=== PATIENT | male | born 1995 | race Caucasian/White ===

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

== ENCOUNTER 2017-06-03 20:03 | Emergency (ER) | payer OTHER ==
--- NOTE | 2017-06-03 20:15 | ED ---
ENT HPI - General Chief complaint: ENT Stated complaint: Dental Pain Time Seen by Provider: 06/03/17 20:15 Source: patient Mode of arrival: ambulatory Limitations: no limitations - History of Present Illness Initial comments: Patient presents with pain and swelling right lower down in his mouth. States significantly worsening over the past 4 hours. Other than that he had mild dental pain in the area for the past few days. Patient denies trouble swallowing, difficulty breathing, stridor, neck pain, fevers, chills, nausea, vomiting, abdominal pain, rhinorrhea, congestion, ear pain, headaches, eye pain , vision changes. Patient states pain is at the base of a tooth that has been chippped for a long time. MD complaint: tooth pain - Related Data Home Medications Medication Instructions Recorded Confirmed Ibuprofen/Diphenhydramine HCl 2 cap PO HS PRN 06/03/17 06/03/17 [Advil Pm Liqui-Gels] Previous Rx's Medication Instructions Recorded Clindamycin [Cleocin] 450 mg PO Q6H #84 capsule 06/03/17 Ibuprofen [Motrin] 600 mg PO Q6HR PRN #20 tab 06/03/17 Allergies Allergy/AdvReac Type Severity Reaction Status Date / Time No Known Allergies Allergy Verified 06/03/17 20:29 Review of Systems ROS Statement: Those systems with pertinent positive or pertinent negative responses have been documented in the HPI. ROS Other: All systems not noted in ROS Statement are negative. Constitutional: Denies: fever, chills, weakness Eyes: Denies: eye pain, eye discharge, vision change ENT: Reports: dental pain. Denies: ear pain, throat pain, congestion Respiratory: Denies: cough Cardiovascular: Denies: chest pain Endocrine: Denies: fatigue Gastrointestinal: Denies: abdominal pain, nausea, vomiting Skin: Reports: other (Right cheek swelling.). Denies: rash Neurological: Denies: headache, confusion Past Medical History Additional Past Medical History / Comment(s): ulcer, kidney stones History of Any Multi-Drug Resistant Organisms: None Reported Past Surgical History: No Surgical Hx Reported Past Psychological History: No Psychological Hx Reported Smoking Status: Current some day smoker Past Alcohol Use History: Occasional Past Drug Use History: None Reported General Exam - General Exam Comments Initial Comments: Sitting up in bed. No acute distress. Conversing normally. Calm, pleasant. Nontoxic appearing Limitations: no limitations General appearance: alert, in no apparent distress Head exam: Present: atraumatic, normocephalic Eye exam: Present: normal appearance, PERRL, EOMI. Absent: scleral icterus, conjunctival injection, periorbital swelling, periorbital tenderness ENT exam: Present: mucous membranes moist, TM's normal bilaterally, other ( Tooth 30 missing, tooth 28 missing 1/2 tooth, mild to moderate swelling of the gum right lower mandible, mild swelling right cheek. No submandibular swelling , floor of the mouth does not appear raised.) Neck exam: Present: normal inspection, full ROM, other (No swelling of the neck appreciated. No submandibular tenderness or swelling appreciated. No stridor.) . Absent: tenderness, meningismus, lymphadenopathy Respiratory exam: Present: normal lung sounds bilaterally. Absent: respiratory distress, wheezes, rales, rhonchi, stridor Cardiovascular Exam: Present: regular rate, tachycardia GI/Abdominal exam: Present: soft. Absent: distended, tenderness, guarding, rebound, rigid Extremities exam: Present: normal inspection Neurological exam: Present: alert, oriented X3 Psychiatric exam: Present: normal affect, normal mood Skin exam: Present: warm, dry, intact, normal color Course Vital Signs 06/03/17 06/03/17 20:05 20:31 Temperature 98.2 F 97.7 F Pulse Rate 121 H 87 Respiratory 20 16 Rate Blood Pressure 167/90 150/78 O2 Sat by Pulse 98 96 Oximetry Medical Decision Making - Medical Decision Making Patient with swelling of the gum, numbed with viscous lidocaine, attempted drainage with 18-gauge needle, however no pus return. Patient tolerated procedure well. Patient mother agree to follow up with dentist tomorrow. Agrees to call first thing in the morning. We'll give prescription for clindamycin. 1st dose clindamycin given in the ER. Patient follow-up with dentist tomorrow. Return ER for worsening symptoms. Patient mother understand and agree. We'll discharge this time. Referral to free dental care given. Disposition Clinical Impression: Dental abscess Disposition: HOME SELF-CARE Condition: Good Instructions: Dental Abscess (ED) Additional Instructions: Follow-up with your Dentist first thing in the morning for reevaluation. Prescriptions: Clindamycin [Cleocin] 450 mg PO Q6H #84 capsule Ibuprofen [Motrin] 600 mg PO Q6HR PRN #20 tab PRN Reason: Pain Referrals: Radha Morris MD [Primary Care Provider] - 1-2 days
[2017-06-03] MEDS ORDERED: CLINDAMYCIN 150 MG CAP PO STA (20:28)
[2017-06-03] MEDS ORDERED: LIDOCAINE VISCOUS 2% 15 ML CUP MUCOUS MEM ONE (20:35)
[2017-06-03 21:42] VITALS: BP 151/80; PULSE 75; RESP 18; TEMP 97.4
== END 2017-06-03 21:40 | disposition home or self-care (01) ==
LOC: EC 20:03
DX: K04.7 Periapical abscess without sinus (principal); R00.0 Tachycardia, unspecified; K08.409 Partial loss of teeth, unspecified cause, unspecified class; F17.200 Nicotine dependence, unspecified, uncomplicated
CPT/HCPCS: 10160; 99282

== ENCOUNTER 2017-12-26 11:07 | Emergency (ER) | payer OTHER ==
[2017-12-26] MEDS ORDERED: ONDANSETRON 4 MG/2 ML VIAL IVP STA (11:43)
[2017-12-26] MEDS ORDERED: SODIUM CHLORIDE 0.9% 1,000 ML IV STA (11:43)
[2017-12-26] MEDS ORDERED: KETOROLAC 30 MG/ML 1 ML VIAL IVP STA (11:43)
[2017-12-26] MEDS ORDERED: HYDROmorphone 1 MG/ML 1 ML SYRINGE IVP STA ×2 (11:43→13:27)
--- NOTE | 2017-12-26 11:47 | ED ---
General Adult HPI - General Chief complaint: Back Pain/Injury Stated complaint: poss kidney stone Time Seen by Provider: 12/26/17 11:10 Source: patient, RN notes reviewed Mode of arrival: ambulatory Limitations: no limitations - History of Present Illness Initial comments: This is a 22-year-old male who presents emergency department with right-sided flank pain radiating down into his lower abdomen. Patient states that multiple kidney stones in the past and this feels like another kidney stone. Patient denies any fever chills. Patient denies any nausea or vomiting. Patient denies any diarrhea. Patient denies any chest pain difficulty breathing shortness breath. Patient denies any dysuria hematuria or urinary frequency. Patient states palpating is abnormal back does not seem to hurt and movement does not seem to increase his pain. - Related Data Home Medications Medication Instructions Recorded Confirmed Ibuprofen/Diphenhydramine HCl 2 cap PO HS PRN 06/03/17 06/03/17 [Advil Pm Liqui-Gels] Previous Rx's Medication Instructions Recorded Clindamycin [Cleocin] 450 mg PO Q6H #84 capsule 06/03/17 Ibuprofen [Motrin] 600 mg PO Q6HR PRN #20 tab 06/03/17 Hydrocodone/Acetaminophen [[place] 1 each PO Q4HR PRN #14 tab 12/26/17 5-325] Ketorolac [Toradol] 10 mg PO Q6HR #15 tab 12/26/17 Allergies Allergy/AdvReac Type Severity Reaction Status Date / Time No Known Allergies Allergy Verified 12/26/17 11:16 Review of Systems ROS Statement: Those systems with pertinent positive or pertinent negative responses have been documented in the HPI. ROS Other: All systems not noted in ROS Statement are negative. Past Medical History Additional Past Medical History / Comment(s): ulcer, kidney stones History of Any Multi-Drug Resistant Organisms: None Reported Past Surgical History: No Surgical Hx Reported Past Psychological History: No Psychological Hx Reported Smoking Status: Current some day smoker Past Alcohol Use History: Occasional Past Drug Use History: None Reported General Exam - General Exam Comments Initial Comments: GENERAL: Patient is well-developed and well-nourished. Patient is nontoxic and well- hydrated and is in moderate distress. ENT: Neck is soft and supple. No significant lymphadenopathy is noted. Oropharynx is clear. Moist mucous membranes. Neck has full range of motion without eliciting any pain. EYES: The sclera were anicteric and conjunctiva were pink and moist. Extraocular movements were intact and pupils were equal round and reactive to light. Eyelids were unremarkable. PULMONARY: Unlabored respirations. Good breath sounds bilaterally. No audible rales rhonchi or wheezing was noted. CARDIOVASCULAR: There is a regular rate and rhythm without any murmurs gallops or rubs. ABDOMEN: Soft and nontender with normal bowel sounds. No palpable organomegaly was noted. There is no palpable pulsatile mass. SKIN: Skin is clear with no lesions or rashes and otherwise unremarkable. NEUROLOGIC: Patient is alert and oriented x3. Cranial nerves II through XII are grossly intact. Motor and sensory are also intact. Normal speech, volume and content. Symmetrical smile. MUSCULOSKELETAL: Normal extremities with adequate strength and full range of motion. LYMPHATICS: No significant lymphadenopathy is noted PSYCHIATRIC: Normal psychiatric evaluation. Normal interpersonal interactions appears functionally intact in deals appropriately with others. No signs of depression. No signs of anxiety. Limitations: no limitations Course Vital Signs 12/26/17 12/26/17 11:14 13:38 Temperature 97.8 F Pulse Rate 57 L 87 Respiratory 20 18 Rate Blood Pressure 165/82 137/64 O2 Sat by Pulse 98 99 Oximetry Medical Decision Making - Medical Decision Making KUB shows multiple stones in the kidneys bilaterally. Patient has quite a bit hematuria - Lab Data Result diagrams: 12/26/17 11:48 12/26/17 11:48 Lab Results 12/26/17 12/26/17 12/26/17 Range/Units 11:48 11:48 13:22 WBC 18.8 H (4.0-11.0) k/uL RBC 5.09 (4.30-5.90) m/uL Hgb 16.0 (13.0-17.5) gm/dL Hct 47.9 (39.0-53.0) % MCV 94.2 (80.0-100.0) fL MCH 31.5 (25.0-35.0) pg MCHC 33.4 (31.0-37.0) g/dL RDW 12.0 (11.5-15.5) % Plt Count 280 (150-450) k/uL Neutrophils % 88 % Lymphocytes % 7 % Monocytes % 4 % Eosinophils % 0 % Basophils % 0 % Neutrophils # 16.5 H (1.3-7.7) k/uL Lymphocytes # 1.4 (1.0-4.8) k/uL Monocytes # 0.7 (0-1.0) k/uL Eosinophils # 0.1 (0-0.7) k/uL Basophils # 0.0 (0-0.2) k/uL Sodium 139 (137-145) mmol/L Potassium 3.8 (3.5-5.1) mmol/L Chloride 101 (98-107) mmol/L Carbon Dioxide 25 (22-30) mmol/L Anion Gap 13 mmol/L BUN 14 (9-20) mg/dL Creatinine 1.03 (0.66-1.25) mg/dL Est GFR (CKD-EPI)AfAm >90 (>60 ml/min/1.73 sqM) Est GFR (CKD-EPI)NonAf >90 (>60 ml/min/1.73 sqM) Glucose 111 H (74-99) mg/dL Calcium 10.0 (8.4-10.2) mg/dL Total Bilirubin 0.6 (0.2-1.3) mg/dL AST 26 (17-59) U/L ALT 34 (21-72) U/L Alkaline Phosphatase 89 (38-126) U/L Total Protein 7.2 (6.3-8.2) g/dL Albumin 4.7 (3.5-5.0) g/dL Amylase 58 (30-110) U/L Lipase 30 (23-300) U/L Urine Color Yellow Urine Appearance Clear (Clear) Urine pH 6.0 (5.0-8.0) Ur Specific [place] 1.022 (1.001-1.035) Urine Protein 1+ H (Negative) Urine Glucose (UA) Negative (Negative) Urine Ketones 2+ H (Negative) Urine Blood Large H (Negative) Urine Nitrite Negative (Negative) Urine Bilirubin Negative (Negative) Urine Urobilinogen <2.0 (<2.0) mg/dL Ur Leukocyte Esterase Trace H (Negative) Urine RBC >182 H (0-5) /hpf Urine WBC 3 (0-5) /hpf Ur Squamous Epith Cells <1 (0-4) /hpf Urine Bacteria Rare H (None) /hpf Urine Mucus Few H (None) /hpf Urine Opiates Screen Detected H (NotDetected) Ur Oxycodone Screen Not Detected (NotDetected) Urine Methadone Screen Not Detected (NotDetected) Ur Propoxyphene Screen Not Detected (NotDetected) Ur Barbiturates Screen Not Detected (NotDetected) U Tricyclic Antidepress Not Detected (NotDetected) Ur Phencyclidine Scrn Not Detected (NotDetected) Ur Amphetamines Screen Detected H (NotDetected) U Methamphetamines Scrn Not Detected (NotDetected) U Benzodiazepines Scrn Not Detected (NotDetected) Urine Cocaine Screen Not Detected (NotDetected) U Marijuana (THC) Screen Detected H (NotDetected) Disposition Clinical Impression: Calculus of kidney, Renal colic Disposition: HOME SELF-CARE Condition: Good Instructions: Kidney Stones (ED) Prescriptions: Hydrocodone/Acetaminophen [[place] 5-325] 1 each PO Q4HR PRN #14 tab PRN Reason: Pain Ketorolac [Toradol] 10 mg PO Q6HR #15 tab Is patient prescribed a controlled substance at d/c from ED?: Yes When asked, does pt state using other controlled substances?: Yes If prescribed controlled substance>3 days was MAPS reviewed?: Prescribed <3 Days If opioid is for acute pain is fill amount 7 days or less?: Yes If Rx opioid, was Start Talking consent form obtained?: Yes Referrals: Radha Morris MD [Primary Care Provider] - 1-2 days Time of Disposition: 14:54
--- NOTE | 2017-12-26 12:07 | XR ---
EXAMINATION TYPE: XR KUB DATE OF EXAM: 12/26/2017 CLINICAL DATA: 22 year-old male with abdominal pain, H COMPARISON: 03/28/2014 FINDINGS: Lung bases are clear. No evidence for free intraperitoneal air. Nonobstructive bowel gas pattern. No significant stool burden. Redemonstrated right-sided renal calculus. Currently this measures 4 mm. 3 calcifications are present on the left measuring up to 5 mm. Levoconvex curvature of the lumbar spine likely positional. A couple phleboliths in the left side of the pelvis. IMPRESSION: 1. No evidence of bowel obstruction or free intraperitoneal air. 2. Bilateral nephrolithiasis measuring up to 5 mm, more numerous on the left.
[2017-12-26 12:10] LABS: Basophils % (A) 0 %; Eosinophils # (A) 0.1 k/uL (0-0.7); Eosinophils % (A) 0 %; HCT 47.9 % (39.0-53.0); Lymphocytes # (A) 1.4 k/uL (1.0-4.8); Lymphocytes % (A) 7 %; MCH 31.5 pg (25.0-35.0); MCHC 33.4 g/dL (31.0-37.0); MCV 94.2 fL (80.0-100.0); Mean Platelet Volume 6.8; Monocytes # (A) 0.7 k/uL (0-1.0); Monocytes % (A) 4 %; Neutrophils # (A) 16.5 k/uL (1.3-7.7); Neutrophils % (A) 88 %; Platelet Count 280 k/uL (150-450); RBC 5.09 m/uL (4.30-5.90); WBC 18.8 k/uL (4.0-11.0)
[2017-12-26 12:18] LABS: ALT 34 U/L (21-72); AST 26 U/L (17-59); Albumin 4.7 g/dL (3.5-5.0); Alkaline Phosphatase 89 U/L (38-126); Amylase 58 U/L (30-110); Anion Gap 13 mmol/L; Blood Urea Nitrogen 14 mg/dL (9-20); Carbon Dioxide 25 mmol/L (22-30); Chloride 101 mmol/L (98-107); Glucose 111 mg/dL (74-99); Lipase 30 U/L (23-300); Potassium 3.8 mmol/L (3.5-5.1); Sodium 139 mmol/L (137-145); Total Bilirubin 0.6 mg/dL (0.2-1.3); Total Protein 7.2 g/dL (6.3-8.2)
[2017-12-26 13:41] VITALS: RESP 18
[2017-12-26 14:00] LABS: Appearance,Urine Clear (Clear); Bacteria,Urine Rare /hpf; Bilirubin,Urine Negative (Negative); Blood,Urine Large (Negative); Color,Urine Yellow; Glucose,Urine (UA) Negative (Negative); Ketones,Urine 2+ (Negative); Leukocyte Esterase,Urine Trace (Negative); Mucus,Urine Few /hpf; Nitrite,Urine Negative (Negative); Protein,Urine 1+ (Negative); RBC,Urine >182 /hpf (0-5); Specific Gravity,Urine 1.022 (1.001-1.035); Squamous Epithelial Cell,Urine <1 /hpf (0-4); Urobilinogen,Urine <2.0 mg/dL (<2.0); WBC,Urine 3 /hpf (0-5)
[2017-12-26 14:12] LABS: Amphetamine Screen,Urine Detected (NotDetected); Barbiturate Screen,Urine Not Detected (NotDetected); Benzodiazepines Screen,Urine Not Detected (NotDetected); Cocaine Screen,Urine Not Detected (NotDetected); Methadone Screen, Urine Not Detected (NotDetected); Opiate Screen,Urine Detected (NotDetected); Oxycodone Screen, Urine Not Detected (NotDetected); Phencyclidine Screen,Urine Not Detected (NotDetected); Tricyclic Antidepressant,Urine Not Detected (NotDetected); Urn Cannabinoid Scrn Detected (NotDetected)
[2017-12-26 15:12] VITALS: BP 130/76; PULSE 70; TEMP 98.1
== END 2017-12-26 15:33 | disposition home or self-care (01) ==
LOC: EC 11:07
DX: N20.0 Calculus of kidney (principal); Z87.442 Personal history of urinary calculi; F17.200 Nicotine dependence, unspecified, uncomplicated
CPT/HCPCS: 36415; 80053; 82150; 83690; 85025; 81001; 80306; 74018; 99284; 96374; 96375 ×2; 96376; 96361; J2405; J1885; J1170